=== PATIENT | female | born 1945 | race Caucasian/White ===

== ENCOUNTER 2017-03-28 11:13 | Emergency (ER) | payer MEDICARE ==
--- NOTE | 2017-03-28 12:37 | UC ---
Throat Pain/Nasal Aleksandr HPI - HPI Summary HPI Summary: Patient has had increased sinus pain and sore throat, deep cough that is productive - History of Current Complaint Chief Complaint: UCRespiratory Stated Complaint: SORE THROAT EAR PAIN Time Seen by Provider: 03/28/17 12:26 Hx Obtained From: Patient ?: No Onset/Duration: Sudden Onset, Lasting Days - 5-7 Severity: Moderate Cough: Productive Associated Signs & Symptoms: Positive: Dysphagia, Hoarseness, Sinus Discomfort, Nasal Discharge - Epiglottits Risk Factors Epiglottis Risk Factors: Negative - Allergies/Home Medications Allergies/Adverse Reactions: Allergies Allergy/AdvReac Type Severity Reaction Status Date / Time No Known Allergies Allergy Verified 01/28/15 16:36 PMH/Surg Hx/FS Hx/Imm Hx Previously Healthy: Yes - Surgical History Surgical History: Yes Surgery Procedure, Year, and Place: R hip replacement,t/a. Back fusion - Family History Known Family History: Negative: Cardiac Disease, Hypertension - Social History Alcohol Use: None Substance Use Type: None Smoking Status (MU): Never Smoked Tobacco Review of Systems Constitutional: Fatigue Skin: Negative Eyes: Negative ENT: Sore Throat, Ear Ache, Nasal Discharge, Sinus Congestion Respiratory: Cough Cardiovascular: Negative Gastrointestinal: Negative Genitourinary: Negative Motor: Negative Neurovascular: Negative Musculoskeletal: Negative Neurological: Headache Psychological: Negative All Other Systems Reviewed And Are Negative: Yes Physical Exam Triage Information Reviewed: Yes Appearance: Well-Appearing, Well-Nourished, Ill-Appearing Vital Signs: Initial Vital Signs Temp 97.6 F 03/28/17 11:20 Pulse 79 03/28/17 11:20 Resp 18 03/28/17 11:20 Pulse Ox 100 03/28/17 11:20 Vital Signs Reviewed: Yes Eye Exam: Normal ENT: Positive: Pharyngeal erythema, Nasal congestion, Nasal drainage, TMs normal , TM red, Tonsillar swelling Dental Exam: Normal Neck exam: Normal Neck: Positive: Supple, Nontender, No Lymphadenopathy Respiratory: Positive: Chest non-tender, No respiratory distress, No accessory muscle use, Rhonchi, Wheezing Cardiovascular Exam: Normal Cardiovascular: Positive: RRR, No Murmur, Pulses Normal Abdominal Exam: Normal Abdomen Description: Positive: Nontender, No Organomegaly, Soft Bowel Sounds: Positive: Present Musculoskeletal Exam: Normal Musculoskeletal: Positive: Strength Intact, ROM Intact, No Edema Neurological Exam: Normal Neurological: Positive: Alert, Muscle Tone Normal Psychological Exam: Normal Skin Exam: Normal Throat Pain/Nasal Course/Dx - Course Course Of Treatment: hx obtained, exam performed, meds reviewed, treated for sinusitis and bronchospasm - Differential Dx/Diagnosis Differential Diagnosis/HQI/PQRI: Otitis Media, Pharyngitis, Sinusitis Provider Diagnoses: sinusitis. bronchospasm Discharge - Discharge Plan Condition: Stable Disposition: HOME Patient Education Materials: Sinusitis (ED) Additional Instructions: 1. take the medication as prescribed. 2. increase your fluid intake and get plenty of rest. 3. Follow up as needed. 4. REMEMBER TO WEAR SUNSCREEN AND TAKE WITH FOOD
== END 2017-03-28 12:40 | disposition home or self-care (01) ==
LOC: UCEAST 11:13
DX: J32.9 Chronic sinusitis, unspecified (principal); J98.01 Acute bronchospasm
CPT/HCPCS: 99212; G0463

== ENCOUNTER 2017-03-31 13:27 | Emergency (ER) | payer MEDICARE ==
--- NOTE | 2017-03-31 13:41 | UC ---
Respiratory Complaint HPI - HPI Summary HPI Summary: 72 YEAR OLD PATIENT PRESENTS WITH SEVERE CHEST CONGESTION AND COUGH. - History of Current Complaint Chief Complaint: UCRespiratory Stated Complaint: RESP COMPLAINT Time Seen by Provider: 03/31/17 13:41 - Allergies/Home Medications Allergies/Adverse Reactions: Allergies Allergy/AdvReac Type Severity Reaction Status Date / Time No Known Allergies Allergy Verified 01/28/15 16:36 PMH/Surg Hx/FS Hx/Imm Hx - Surgical History Surgical History: Yes Surgery Procedure, Year, and Place: R hip replacement,t/a. Back fusion - Family History Known Family History: Negative: Cardiac Disease, Hypertension - Social History Alcohol Use: None Substance Use Type: None Smoking Status (MU): Never Smoked Tobacco Review of Systems Constitutional: Negative Skin: Negative Eyes: Negative ENT: Negative Respiratory: Cough Cardiovascular: Negative Gastrointestinal: Negative Genitourinary: Negative Motor: Negative Neurovascular: Negative Musculoskeletal: Negative Neurological: Negative Psychological: Negative All Other Systems Reviewed And Are Negative: Yes Physical Exam Triage Information Reviewed: Yes Vital Signs: Initial Vital Signs Temp 36.7 C 03/31/17 13:36 Pulse 77 03/31/17 13:36 Resp 20 03/31/17 13:36 Pulse Ox 97 03/31/17 13:36 Eye Exam: Normal ENT Exam: Normal Dental Exam: Normal Neck exam: Normal Respiratory: Positive: Rhonchi, Wheezing Cardiovascular Exam: Normal Abdominal Exam: Normal Musculoskeletal Exam: Normal Neurological Exam: Normal Psychological Exam: Normal Skin Exam: Normal UC Diagnostic Evaluation - Laboratory O2 Sat by Pulse Oximetry: 97 Respiratory Course/Dx - Differential Dx/Diagnosis Provider Diagnoses: BRONCHITIS Discharge - Discharge Plan Condition: Stable Disposition: HOME Prescriptions: Albuterol HFA INHALER* [Ventolin HFA Inhaler*] 1 puff INH Q4H PRN #1 mdi PRN Reason: Wheezing Levofloxacin TAB* [Levaquin TAB*] 750 mg PO DAILY #7 tab LoraTADine TAB(NF) [Claritin 10 MG TAB(NF)] 10 mg PO DAILY #30 tab guaiFENesin/CODIEN 100MG-10MG* [Robitussin AC 100Mg-10Mg*] 5 ml PO Q4H PRN #120 udc MDD 20 ML PRN Reason: Cough Patient Education Materials: Acute Bronchitis (ED) Referrals: No Primary Care Phys,NOPCP [Medical Doctor] -
== END 2017-03-31 13:55 | disposition home or self-care (01) ==
LOC: UCEAST 13:27
DX: J40 Bronchitis, not specified as acute or chronic (principal); Z96.641 Presence of right artificial hip joint
CPT/HCPCS: 99212; G0463

== ENCOUNTER 2017-04-04 10:02 | Emergency (ER) | payer MEDICARE ==
[2017-04-04] MEDS ORDERED: guaiFENesin ER TAB 600 MG PO ONE (12:42)
[2017-04-04] MEDS ORDERED: NS 0.9% 1000 ML* 1,000 ML IV ONE (12:42)
[2017-04-04 13:50] LABS: Hematocrit 45 % (35-47); Hemoglobin 14.6 g/dl (12.0-16.0); Mean Corpuscular HGB Conc 33 g/dl (31-36); Mean Corpuscular Hemoglobin 31 pg (27-31); Mean Corpuscular Volume 93 fL (80-97); Mean Platelet Volume 8 um3 (7.4-10.4); Red Blood Count 4.76 10^6/ul (4.0-5.4); Red Cell Distribution Width 14 % (10.5-15); White Blood Count 11.7 10^3/ul (3.5-10.8)
--- NOTE | 2017-04-04 13:57 | RAD ---
Indication: Chest tightness. 2 views of the chest including dual energy PA views demonstrates no mediastinal shift. Heart is of normal size and configuration. Old rib fractures in the right third fourth fifth ribs are noted. Lungs are clear. No pneumothorax is noted. IMPRESSION: No active cardiopulmonary disease is noted.
[2017-04-04 14:04] LABS: Albumin 4.2 g/dL (3.2-5.2); BUN/Creatinine Ratio 31.3 (8-20); C Reactive Protein 5.89 mg/L (< 5.00); Calcium 10.1 mg/dL (8.6-10.3); EGFR African American 111.6 (>60); EGFR Non-African American 86.8 (>60); Globulin 3.6 g/dL (2-4); Potassium 3.5 mmol/L (3.5-5.0); Total Bilirubin 0.4 mg/dL (0.2-1.0); Total Protein 7.8 g/dL (6.4-8.9)
[2017-04-04] MEDS ORDERED: Amoxicillin/Clavulanate TAB* 875 MG PO ONE (14:10)
[2017-04-04 14:15] LABS: Urine Bilirubin Negative (Negative); Urine Glucose Negative (Negative); Urine Nitrite Negative (Negative)
--- NOTE | 2017-04-04 15:02 | ED ---
Kaleb Armstrong Thomas, scribed for Mauricio Oscar MD on 04/04/17 at 1236 . Respiratory - HPI Summary HPI Summary: The pt is a 72 y/o F presenting to the ED c/o sore throat and cough that began 1 week ago. The cough is dry and worsened with movement. The pt additionally c/ o sore throat, ear pain, postnasal drip, nausea, "head feeling funny". The pt denies vomiting and SOB. She was a pt at a walk-in clinic twice this week. The first visit, she was diagnosed with a sinus infection and the second visit she was diagnosed with acute bronchitis. She was prescribed Levaquin, which she took for two days. Her Sx of nausea and "head felt funny" seemed to emerge with the onset of taking these medications. The pt is leaving for [place] in 4 days, she hopes. There is no PMHx of asthma or COPD. PMHx: DM, HTN. - History of Current Complaint Chief Complaint: EDUpperRespComplaint Stated Complaint: EAR/THROAT PAIN/COUGH Time Seen by Provider: 04/04/17 12:02 Hx Obtained From: Patient Onset/Duration: Lasting Weeks - 1 week, Still Present Pain Intensity: 0 Character: Cough (Nonproductive) Associated Signs and Symptoms: Sinus Infection - diagnosed during her first visit to a walk-in clinic - Allergy/Home Medications Allergies/Adverse Reactions: Allergies Allergy/AdvReac Type Severity Reaction Status Date / Time No Known Allergies Allergy Verified 04/04/17 10:10 PMH/Surg Hx/FS Hx/Imm Hx Previously Healthy: No Endocrine/Hematology History: Reports: Hx Diabetes Cardiovascular History: Reports: Hx Hypertension Opthamlomology History: Denies: Hx Legally Blind - Surgical History Surgery Procedure, Year, and Place: R hip replacement,t/a. Back fusion Infectious Disease History: No Infectious Disease History: Denies: Hx Clostridium Difficile, Hx Hepatitis, Hx Human Immunodeficiency Virus (HIV), Hx of Known/Suspected MRSA, Hx Shingles, Hx Tuberculosis, Hx Known/ Suspected VRE, Hx Known/Suspected VRSA, History Other Infectious Disease, Traveled Outside the [place] in Last 30 Days - Family History Known Family History: Negative: Cardiac Disease, Hypertension - Social History Alcohol Use: None Substance Use Type: Reports: None Smoking Status (MU): Never Smoked Tobacco Review of Systems Constitutional: Negative Negative: Fever Eyes: Negative ENT: Other - POS: postnasal drip, "head feeling funny" Positive: Sore Throat - onset 1 week ago, Ear Ache - onset 1 week ago Cardiovascular: Negative Positive: Cough - dry, onset 1 week ago. Negative: Shortness Of Breath Positive: Nausea. Negative: Vomiting Genitourinary: Negative Musculoskeletal: Negative Skin: Negative Neurological: Negative Psychological: Normal All Other Systems Reviewed And Are Negative: Yes Physical Exam - Summary Physical Exam Summary: VITAL SIGNS: Reviewed. GENERAL: Patient is a well-developed and nourished female who is lying comfortable in the stretcher. Patient is not in any acute respiratory distress. HEAD AND FACE: Positive sinus tenderness. Positive ethmoid tenderness. No signs of trauma. No ecchymosis, hematomas or skull depressions. EYES: PERRLA, EOMI x 2, No injected conjunctiva, no nystagmus. EARS: Hearing grossly intact. Ear canals and tympanic membranes are within normal limits. MOUTH: Oropharynx within normal limits. NECK: Supple, trachea is midline, no adenopathy, no JVD, no carotid bruit, no c- spine tenderness, neck with full ROM. CHEST: Symmetric, no tenderness at palpation LUNGS: Lungs have coarse breath sounds, otherwise normal. No wheezing or crackles. CVS: Regular rate and rhythm, S1 and S2 present, no murmurs or gallops appreciated. ABDOMEN: Soft, non-tender. No signs of distention. No rebound no guarding, and no masses palpated. Bowel sounds are normal. EXTREMITIES: FROM in all major joints, no edema, no cyanosis or clubbing. NEURO: Alert and oriented x 3. No acute neurological deficits. Speech is normal and follows commands. SKIN: Dry and warm Triage Information Reviewed: Yes Vital Signs On Initial Exam: Initial Vitals Temp Pulse Resp BP Pulse Ox 97.6 F 79 20 144/93 96 04/04/17 10:11 04/04/17 10:11 04/04/17 10:11 04/04/17 10:11 04/04/17 10:11 Vital Signs Reviewed: Yes - Julia Coma Scale Coma Scale Total: 15 Diagnostics - Vital Signs Vital Signs Temp Pulse Resp BP Pulse Ox 04/04/17 10:17 97.6 F 74 20 144/93 96 04/04/17 10:11 97.6 F 79 20 144/93 96 - Laboratory Lab Results: Lab Results 04/04/17 04/04/17 04/04/17 Range/Units 13:35 13:35 13:35 WBC 11.7 H (3.5-10.8) 10^3/ul RBC 4.76 (4.0-5.4) 10^6/ul Hgb 14.6 (12.0-16.0) g/dl Hct 45 (35-47) % MCV 93 (80-97) fL MCH 31 (27-31) pg MCHC 33 (31-36) g/dl RDW 14 (10.5-15) % Plt Count 264 (150-450) 10^3/ul MPV 8 (7.4-10.4) um3 Neut % (Auto) 61.2 (38-83) % Lymph % (Auto) 30.2 (25-47) % [place] % (Auto) 6.0 (1-9) % Eos % (Auto) 1.9 (0-6) % Baso % (Auto) 0.7 (0-2) % Absolute Neuts (auto) 7.2 (1.5-7.7) 10^3/ul Absolute Lymphs (auto) 3.5 (1.0-4.8) 10^3/ul Absolute Monos (auto) 0.7 (0-0.8) 10^3/ul Absolute Eos (auto) 0.2 (0-0.6) 10^3/ul Absolute Basos (auto) 0.1 (0-0.2) 10^3/ul Absolute Nucleated RBC 0.01 10^3/ul Nucleated RBC % 0.1 Sodium 138 (133-145) mmol/L Potassium 3.5 (3.5-5.0) mmol/L Chloride 100 L (101-111) mmol/L Carbon Dioxide 26 (22-32) mmol/L Anion Gap 12 H (2-11) mmol/L BUN 21 (6-24) mg/dL Creatinine 0.67 (0.51-0.95) mg/dL Est GFR ( Amer) 111.6 (>60) Est GFR (Non-Af Amer) 86.8 (>60) BUN/Creatinine Ratio 31.3 H (8-20) Glucose 92 (70-100) mg/dL Lactic Acid 3.3 H* (0.5-2.0) mmol/L Calcium 10.1 (8.6-10.3) mg/dL Total Bilirubin 0.40 (0.2-1.0) mg/dL AST 17 (13-39) U/L ALT 23 (7-52) U/L Alkaline Phosphatase 58 (34-104) U/L Troponin I 0.00 (<0.04) ng/mL C-Reactive Protein 5.89 H (< 5.00) mg/L Total Protein 7.8 (6.4-8.9) g/dL Albumin 4.2 (3.2-5.2) g/dL Globulin 3.6 (2-4) g/dL Albumin/Globulin Ratio 1.2 (1-3) Urine Color Urine Appearance Urine pH (5-9) Ur Specific [place] (1.010-1.030) Urine Protein (Negative) Urine Ketones (Negative) Urine Blood (Negative) Urine Nitrate (Negative) Urine Bilirubin (Negative) Urine Urobilinogen (Negative) Ur Leukocyte Esterase (Negative) Urine Glucose (Negative) Urine Ascorbic Acid (Negative) 04/04/17 Range/Units 14:08 WBC (3.5-10.8) 10^3/ul RBC (4.0-5.4) 10^6/ul Hgb (12.0-16.0) g/dl Hct (35-47) % MCV (80-97) fL MCH (27-31) pg MCHC (31-36) g/dl RDW (10.5-15) % Plt Count (150-450) 10^3/ul MPV (7.4-10.4) um3 Neut % (Auto) (38-83) % Lymph % (Auto) (25-47) % [place] % (Auto) (1-9) % Eos % (Auto) (0-6) % Baso % (Auto) (0-2) % Absolute Neuts (auto) (1.5-7.7) 10^3/ul Absolute Lymphs (auto) (1.0-4.8) 10^3/ul Absolute Monos (auto) (0-0.8) 10^3/ul Absolute Eos (auto) (0-0.6) 10^3/ul Absolute Basos (auto) (0-0.2) 10^3/ul Absolute Nucleated RBC 10^3/ul Nucleated RBC % Sodium (133-145) mmol/L Potassium (3.5-5.0) mmol/L Chloride (101-111) mmol/L Carbon Dioxide (22-32) mmol/L Anion Gap (2-11) mmol/L BUN (6-24) mg/dL Creatinine (0.51-0.95) mg/dL Est GFR ( Amer) (>60) Est GFR (Non-Af Amer) (>60) BUN/Creatinine Ratio (8-20) Glucose (70-100) mg/dL Lactic Acid (0.5-2.0) mmol/L Calcium (8.6-10.3) mg/dL Total Bilirubin (0.2-1.0) mg/dL AST (13-39) U/L ALT (7-52) U/L Alkaline Phosphatase (34-104) U/L Troponin I (<0.04) ng/mL C-Reactive Protein (< 5.00) mg/L Total Protein (6.4-8.9) g/dL Albumin (3.2-5.2) g/dL Globulin (2-4) g/dL Albumin/Globulin Ratio (1-3) Urine Color Yellow Urine Appearance Clear Urine pH 5.0 (5-9) Ur Specific [place] 1.015 (1.010-1.030) Urine Protein Negative (Negative) Urine Ketones Negative (Negative) Urine Blood Negative (Negative) Urine Nitrate Negative (Negative) Urine Bilirubin Negative (Negative) Urine Urobilinogen Negative (Negative) Ur Leukocyte Esterase Negative (Negative) Urine Glucose Negative (Negative) Urine Ascorbic Acid * H (Negative) Result Diagrams: 04/04/17 13:35 04/04/17 13:35 Lab Statement: Any lab studies that have been ordered have been reviewed, and results considered in the medical decision making process. - Radiology CXR Xray Interpretation: No Acute Changes - no active cardiopulmonary disease is noted Radiology Interpretation Completed By: Radiologist - EKG 13:14 Cardiac Rate: NL - 72 BPM EKG Interpretation: Sinus rhythm. No ST elevations. T-wave inversions at V2 Re-Evaluation - Re-Evaluation Second Eval Re-Evaluation Time: 01:13 Change: Improved Comment: Doing better. Disposition - Course Assessment/Plan: The pt is a 72 y/o F presenting to the ED c/o sore throat and cough that began 1 week ago. The cough is dry and worsened with movement. The pt additionally c/o sore throat, ear pain, post nasal drip, nausea, "head feeling funny". The pt denies vomiting and SOB. She was a pt at a walk-in clinic twice this week. The first visit, she was diagnosed with a sinus infection and the second visit she was diagnosed with acute bronchitis. She was prescribed Levaquin, which she took for two days. Her Sx of nausea and "head felt funny" seemed to emerge with the onset of taking these medications. The pt is leaving for [place] in 4 days, she hopes. There is no PMHx of asthma or COPD. I discussed all the findings and test results with the patient. Patient was instructed to return to the emergency room immediately if any of the symptoms return or worsens . Plan of care was discussed with the patient and understands and agrees. All questions were answered at patient satisfaction. There were no further complaints or concerns. Lung exam before discharge: CTA B/L. Good air exchange. No wheezing or crackles heard. CVS: S1 and S2 present. No murmurs appreciated. Patient is alert and oriented x 3. Patient is hemodynamically stable. 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 2-3 days - Differential Dx - Cardiopulmonary Differential Diagnoses - Cardiopulmonary: Bronchitis, Influenza, Laryngitis, Lower Resp Infection - Diagnoses Provider Diagnoses: Acute sinusitis Discharge - Discharge Plan Condition: Stable Disposition: HOME Prescriptions: Amoxicillin/Clavulanate TAB* [Augmentin TAB 875*] 875 mg PO BID #10 tab Ondansetron TAB* [Zofran 4 MG Tab*] 4 mg PO Q6H PRN #12 tab PRN Reason: Nausea Phenyleph-Promethazine W/ Cod [Promethazine Vc/Codeine] 1 syp PO Q8H PRN #120 ml MDD 30 ml PRN Reason: Cough Patient Education Materials: Sinusitis (ED) Referrals: [facility] [Outside] - 2 Days The documentation as recorded by the Kaleb strauss Thomas accurately reflects the service I personally performed and the decisions made by me, Mauricio Oscar MD.
[2017-04-04 15:08] VITALS: BP 127/74
== END 2017-04-04 15:09 | disposition home or self-care (01) ==
LOC: ED 10:02
DX: J02.9 Acute pharyngitis, unspecified (principal); J32.9 Chronic sinusitis, unspecified; R05 Cough; R11.0 Nausea
CPT/HCPCS: 36415; 71020; 80053; 81003; 83605; 84484; 85025; 86140; 87040; 93005; 99283; A9270-GY

== ENCOUNTER 2017-05-10 18:35 | Inpatient (IN) | payer MEDICARE ==
[2017-05-10] MEDS ORDERED: Aspirin Low Dose CHEW TAB* 81 MG PO ONE (22:50)
[2017-05-10 23:21] LABS: Hematocrit 43 % (35-47); Hemoglobin 14.5 g/dl (12.0-16.0); Mean Corpuscular HGB Conc 34 g/dl (31-36); Mean Corpuscular Hemoglobin 31 pg (27-31); Mean Corpuscular Volume 93 fL (80-97); Mean Platelet Volume 7 um3 (7.4-10.4); Red Blood Count 4.67 10^6/ul (4.0-5.4); Red Cell Distribution Width 14 % (10.5-15); White Blood Count 10.5 10^3/ul (3.5-10.8)
[2017-05-10 23:42] LABS: Albumin 4.2 g/dL (3.2-5.2); BUN/Creatinine Ratio 32.9 (8-20); Calcium 10.1 mg/dL (8.6-10.3); EGFR African American 106.1 (>60); EGFR Non-African American 82.5 (>60); Globulin 3.5 g/dL (2-4); Potassium 3.7 mmol/L (3.5-5.0); Total Bilirubin 0.4 mg/dL (0.2-1.0); Total Protein 7.7 g/dL (6.4-8.9)
[2017-05-11] MEDS ORDERED: Acetaminophen TAB* 325 MG PO PRN (00:16)
[2017-05-11] MEDS ORDERED: CMCS: Melatonin (NF) 3 MG TAB PO PRN (00:16)
[2017-05-11] MEDS ORDERED: Ondansetron INJ* 2 MG/ML VIAL IV PRN (00:16)
--- NOTE | 2017-05-11 00:31 | HP ---
H&P (Free Text) History and Physical: PCP: Dr Robins in [place], [place] Date/Time of Evaluation: 05/11/2017 0020 CC: chest discomfort HPI: Mrs Reyes is a 72YO female HX HTN & DM2 presents reporting an episode yesterday lasting an hour while driving of back pain radiating to the chest associated with nausea, but no SOB, palpitations, light-headedness, or other issues. The pain is described as sharp with band-like constriction. Today the pain returned less severe and less lasting, but causing her increased concern and prompting her to present for evaluation. She denies exacerbating or alleviating factors. She denies HX of cardiac cath or stress test. PMedHx HTN DM2 asthma psoriasis Ambulatory Orders Nursing to reconcile. Ascorbic Acid TAB* [Vitamin C TAB*] 01/28/15 Benazepril & Hydrochlorothiazi [Benazepril HCl/Hydrochlor 10-12.5 mg-] Biotin 01/28/15 Calcium With Vitamin D 600 mg 01/28/15 Clobetasol Shampoo 01/28/15 Eye [place] Advantage/Vitam 01/28/15 Montelukast Sodium TAB* [Singulair 10 MG TAB*] 01/28/15 Osteo Bi Flex With Msm 01/28/15 Potassium 01/28/15 glipiZIDE TAB* [Glucotrol TAB*] 10 mg 01/28/15 metFORMIN* [Glucophage 1000 MG TAB *] 01/28/15 predniSONE TAB* [Deltasone TAB*] 20 mg PO DAILY #7 tab 03/28/17 Albuterol HFA INHALER* [Ventolin HFA Inhaler*] 1 puff INH Q4H PRN #1 mdi LoraTADine TAB(NF) [Claritin 10 MG TAB(NF)] 10 mg PO DAILY #30 tab 03/31/17 guaiFENesin/CODIEN 100MG-10MG* [Robitussin AC 100Mg-10Mg*] 5 ml PO Q4H PRN #120 udc MDD 20 ML 03/31/17 Amoxicillin/Clavulanate TAB* [Augmentin TAB 875*] 875 mg PO BID #10 tab Ondansetron TAB* [Zofran 4 MG Tab*] 4 mg PO Q6H PRN #12 tab 04/04/17 Phenyleph-Promethazine W/ Cod [Promethazine Vc/Codeine] 1 syp PO Q8H PRN #120 ml MDD 30 ml 04/04/17 Allergies No Known Allergies Allergy (Verified 04/04/17 10:10) PSurgHx tonsillectomy L-spine surgery x3 R RONI SocHx: former light smoker, no alcohol, or recreational drugs; lives with her ; full code status FamHx: Mother passed in her 80s of CVA. Father passed in his 70s of lung CA. ROS: as above, otherwise reviewed and all were negative Constitutional: NAD, normally developed, well-nourished elderly female vitals: Vital Signs Temp 36.8 C 05/10/17 23:11 Pulse 76 05/10/17 23:11 Resp 18 05/10/17 23:11 BP 132/74 05/10/17 23:11 Pulse Ox 97 05/10/17 23:11 Intake & Output 05/10/17 05/10/17 05/11/17 11:59 23:59 11:59 Weight 65.771 kg HEENM: atraumatic; sclera/conjunctiva: non-icteric/clear; hearing: clinically intact; oropharynx: clear, mucosa moist Neck: soft tissue: non-tender; thyroid: normal Pulmonary: clear to auscultation bilaterally, good aeration, no accessory muscle use CV: RR/RR, normal S1S2, no carotid bruit, no jugular venous distention, 2+ B DP/ PT, no edema Abdominal: soft, non-distended, non-tender, no rebound/guarding/rigidity, normoactive bowel sounds, no hepatosplenomegaly or masses, no costovertebral angle tenderness Musculoskeletal: general: grossly intact; gait: stable Integumental: normal appearance and texture Psychiatric orientation: AA&O to PPS affect: calm mood: pleasant eye contact: good content: reliable responses: timely insight: good to fair Testing: Laboratory Results - last 24 hr 05/10/17 05/10/17 05/10/17 23:03 23:03 23:03 WBC 10.5 RBC 4.67 Hgb 14.5 Hct 43 MCV 93 MCH 31 MCHC 34 RDW 14 Plt Count 271 MPV 7 L Neut % (Auto) 56.2 Lymph % (Auto) 33.6 [place] % (Auto) 8.2 Eos % (Auto) 1.6 Baso % (Auto) 0.4 Absolute Neuts (auto) 5.9 Absolute Lymphs (auto) 3.5 Absolute Monos (auto) 0.9 H Absolute Eos (auto) 0.2 Absolute Basos (auto) 0 Absolute Nucleated RBC 0 Nucleated RBC % 0 Sodium 136 Potassium 3.7 Chloride 100 L Carbon Dioxide 26 Anion Gap 10 BUN 23 Creatinine 0.70 Est GFR ( Amer) 106.1 Est GFR (Non-Af Amer) 82.5 BUN/Creatinine Ratio 32.9 H Glucose 132 H Lactic Acid 2.0 Calcium 10.1 Total Bilirubin 0.40 AST 19 ALT 20 Alkaline Phosphatase 62 Troponin I 0.00 B-Natriuretic Peptide Total Protein 7.7 Albumin 4.2 Globulin 3.5 Albumin/Globulin Ratio 1.2 05/10/17 23:03 WBC RBC Hgb Hct MCV MCH MCHC RDW Plt Count MPV Neut % (Auto) Lymph % (Auto) [place] % (Auto) Eos % (Auto) Baso % (Auto) Absolute Neuts (auto) Absolute Lymphs (auto) Absolute Monos (auto) Absolute Eos (auto) Absolute Basos (auto) Absolute Nucleated RBC Nucleated RBC % Sodium Potassium Chloride Carbon Dioxide Anion Gap BUN Creatinine Est GFR ( Amer) Est GFR (Non-Af Amer) BUN/Creatinine Ratio Glucose Lactic Acid Calcium Total Bilirubin AST ALT Alkaline Phosphatase Troponin I B-Natriuretic Peptide 434 H Total Protein Albumin Globulin Albumin/Globulin Ratio ECG, personally reviewed: NSR rate 65, inverted T-waves V1/2; unchanged from 2016 CXR, personally reviewed: old R rib FXs, no acute process Impression: 72F presenting with chest pain for r/o ACS DIAGNOSIS & PLAN Primary chest pain r/o ACS : telemetry : aspirin : trend troponin : stress test in AM : consider cardiology consult pending above results : supplemental oxygen : supportive care Secondary HTN : review meds once reconciled DM2 : NPO for stress testing : correctional insulin : check A1c asthma : review meds once reconciled Admission Rational: CDU observation for r/o ACS DVTp: heparin SQ Code Status: full HCP:
--- NOTE | 2017-05-11 02:11 | ED ---
I, Oh,Soregina, scribed for Lázaro Carrillo MD on 05/10/17 at 2244 . HPI Chest Pain - HPI Summary HPI Summary: This 72 y/o female presents to ED for intermittent chest pain since last night. Pt had one episode last night that lasted about an hour and spontaneously resolved. Pt was driving at time of onset. Today she had another at 1700 PM and lasted about 45 minutes. Pt attempted to alleviate pain by resting and drinking coke. Pt denies any prior cardiac disease. No updated echocardiogram or stress test. PMHx includes DM and HTN. PSHx includes hip replacement and back surgery. FHx is negative for cardiac disease. Pt does not have any primary care established in [facility]. - History of Current Complaint Chief Complaint: EDChestPainROMI Time Seen by Provider: 05/10/17 22:33 Hx Obtained From: Patient, Medical Records Onset/Duration: Started Days Ago, Atraumatic, Still Present Timing: Intermittent, Lasting Minutes, Lasting Hours Pain Intensity: 0 Pain Scale Used: 0-10 Numeric Chest Pain Location: Diffuse Chest Pain Radiates: Yes Chest Pain Radiates To:: Back - upper back - Allergy/Home Medications Allergies/Adverse Reactions: Allergies Allergy/AdvReac Type Severity Reaction Status Date / Time No Known Allergies Allergy Verified 04/04/17 10:10 PMH/Surg Hx/FS Hx/Imm Hx Endocrine/Hematology History: Reports: Hx Diabetes Cardiovascular History: Reports: Hx Hypertension Sensory History: Denies: Hx Legally Blind Opthamlomology History: Denies: Hx Legally Blind - Surgical History Surgery Procedure, Year, and Place: R hip replacement,t/a. Back fusion Infectious Disease History: Denies: Hx Clostridium Difficile, Hx Hepatitis, Hx Human Immunodeficiency Virus (HIV), Hx of Known/Suspected MRSA, Hx Shingles, Hx Tuberculosis, Hx Known/ Suspected VRE, Hx Known/Suspected VRSA, History Other Infectious Disease, Traveled Outside the [place] in Last 30 Days - Family History Known Family History: Negative: Cardiac Disease, Hypertension - Social History Alcohol Use: None Substance Use Type: Reports: None Smoking Status (MU): Never Smoked Tobacco Review of Systems Negative: Fever, Chills, Skin Diaphoresis Positive: Chest Pain - radiating to upper back pain Negative: Shortness Of Breath All Other Systems Reviewed And Are Negative: Yes Physical Exam - Summary Physical Exam Summary: The patient is well-nourished in no acute distress and in no acute pain. The skin is warm and dry and skin color reflects adequate perfusion. HEENT: The head is normocephalic and atraumatic. The pupils are equal and reactive. The conjunctivae are clear and without drainage. Nares are patent and without drainage. Mouth reveals moist mucous membranes and the throat is without erythema and exudate. The external ears are intact. The ear canals are patent and without drainage. The tympanic membranes are intact. Neck is supple with full range of motion and non-tender. There are no carotid bruits. There is no neck vein distension. Respiratory: Chest is non-tender. Lungs are clear to auscultation and breath sounds are symmetrical and equal. Cardiovascular: Hear is regular rate and rhythm. There is no murmur or rub auscultated. There is no peripheral edema and pulses are symmetrical and equal. Abdomen: The abdomen is soft and non-tender. There are normal bowel sounds heard in all four quadrants and there is no organomegaly palpated. Musculoskeletal: There is no back pain noted. Extremities are non-tender with full range of motion. There is good capillary refill. There is no peripheral edema or calf tenderness elicited. Neurological: Patient is alert and oriented to person, place and time. The patient has symmetrical motor strength in all four extremities. Cranial nerves are grossly intact. Deep tendon reflexes are symmetrical and equal in all four extremities. Psychiatric: The patient has an appropriate affect and does not exhibit any anxiety or depression. Triage Information Reviewed: Yes Vital Signs On Initial Exam: Initial Vitals Temp Pulse Resp BP Pulse Ox 97.8 F 71 20 147/84 100 05/10/17 18:36 05/10/17 18:36 05/10/17 18:36 05/10/17 18:36 05/10/17 18:36 Vital Signs Reviewed: Yes Diagnostics - Vital Signs Vital Signs Temp Pulse Resp BP Pulse Ox 05/10/17 20:56 98.2 F 67 14 133/65 97 05/10/17 18:36 97.8 F 71 20 147/84 100 - Laboratory Lab Results: Lab Results 05/10/17 05/10/17 05/10/17 Range/Units 23:03 23:03 23:03 WBC 10.5 (3.5-10.8) 10^3/ul RBC 4.67 (4.0-5.4) 10^6/ul Hgb 14.5 (12.0-16.0) g/dl Hct 43 (35-47) % MCV 93 (80-97) fL MCH 31 (27-31) pg MCHC 34 (31-36) g/dl RDW 14 (10.5-15) % Plt Count 271 (150-450) 10^3/ul MPV 7 L (7.4-10.4) um3 Neut % (Auto) 56.2 (38-83) % Lymph % (Auto) 33.6 (25-47) % [place] % (Auto) 8.2 (1-9) % Eos % (Auto) 1.6 (0-6) % Baso % (Auto) 0.4 (0-2) % Absolute Neuts (auto) 5.9 (1.5-7.7) 10^3/ul Absolute Lymphs (auto) 3.5 (1.0-4.8) 10^3/ul Absolute Monos (auto) 0.9 H (0-0.8) 10^3/ul Absolute Eos (auto) 0.2 (0-0.6) 10^3/ul Absolute Basos (auto) 0 (0-0.2) 10^3/ul Absolute Nucleated RBC 0 10^3/ul Nucleated RBC % 0 Sodium 136 (133-145) mmol/L Potassium 3.7 (3.5-5.0) mmol/L Chloride 100 L (101-111) mmol/L Carbon Dioxide 26 (22-32) mmol/L Anion Gap 10 (2-11) mmol/L BUN 23 (6-24) mg/dL Creatinine 0.70 (0.51-0.95) mg/dL Est GFR ( Amer) 106.1 (>60) Est GFR (Non-Af Amer) 82.5 (>60) BUN/Creatinine Ratio 32.9 H (8-20) Glucose 132 H (70-100) mg/dL Lactic Acid 2.0 (0.5-2.0) mmol/L Calcium 10.1 (8.6-10.3) mg/dL Total Bilirubin 0.40 (0.2-1.0) mg/dL AST 19 (13-39) U/L ALT 20 (7-52) U/L Alkaline Phosphatase 62 (34-104) U/L Troponin I 0.00 (<0.04) ng/mL B-Natriuretic Peptide ( - 100) pg/mL Total Protein 7.7 (6.4-8.9) g/dL Albumin 4.2 (3.2-5.2) g/dL Globulin 3.5 (2-4) g/dL Albumin/Globulin Ratio 1.2 (1-3) 05/10/17 Range/Units 23:03 WBC (3.5-10.8) 10^3/ul RBC (4.0-5.4) 10^6/ul Hgb (12.0-16.0) g/dl Hct (35-47) % MCV (80-97) fL MCH (27-31) pg MCHC (31-36) g/dl RDW (10.5-15) % Plt Count (150-450) 10^3/ul MPV (7.4-10.4) um3 Neut % (Auto) (38-83) % Lymph % (Auto) (25-47) % [place] % (Auto) (1-9) % Eos % (Auto) (0-6) % Baso % (Auto) (0-2) % Absolute Neuts (auto) (1.5-7.7) 10^3/ul Absolute Lymphs (auto) (1.0-4.8) 10^3/ul Absolute Monos (auto) (0-0.8) 10^3/ul Absolute Eos (auto) (0-0.6) 10^3/ul Absolute Basos (auto) (0-0.2) 10^3/ul Absolute Nucleated RBC 10^3/ul Nucleated RBC % Sodium (133-145) mmol/L Potassium (3.5-5.0) mmol/L Chloride (101-111) mmol/L Carbon Dioxide (22-32) mmol/L Anion Gap (2-11) mmol/L BUN (6-24) mg/dL Creatinine (0.51-0.95) mg/dL Est GFR ( Amer) (>60) Est GFR (Non-Af Amer) (>60) BUN/Creatinine Ratio (8-20) Glucose (70-100) mg/dL Lactic Acid (0.5-2.0) mmol/L Calcium (8.6-10.3) mg/dL Total Bilirubin (0.2-1.0) mg/dL AST (13-39) U/L ALT (7-52) U/L Alkaline Phosphatase (34-104) U/L Troponin I (<0.04) ng/mL B-Natriuretic Peptide 434 H ( - 100) pg/mL Total Protein (6.4-8.9) g/dL Albumin (3.2-5.2) g/dL Globulin (2-4) g/dL Albumin/Globulin Ratio (1-3) Result Diagrams: 05/10/17 23:03 05/10/17 23:03 Lab Statement: Any lab studies that have been ordered have been reviewed, and results considered in the medical decision making process. - Radiology CXR Radiology Interpretation Completed By: ED Physician - EKG 7847 Cardiac Rate: NL - at 65 bpm EKG Rhythm: Sinus Rhythm EKG Interpretation: T-wave inversion at V1, and V2. Nonspecific changes at V3, V4, F5, and V6. Re-Evaluation - Re-Evaluation First Eval Re-Evaluation Time: 00:07 Comment: MD in room to update pt on blood work, EKG, and CXR. Plan of care involving admission and further cardiac workup is disucssed, and pt is agreeable at this moment. Chest Pain Course/Dx - Course Assessment/Plan: This 72 y/o female presents to ED for intermittent chest pressure since last night. Pt had initial episode last night that lasted about 1 hour while she was driving. Another episode occurred tonight that lasted about 45 minutes. EKG was noted with T-wave inversion and nonspecific changes. Blood work is noted with negative trop. Given the lack of recent stress test or echocardiogram, further cardiac workup is desirable. Plan of care is discussed with Dr. Anguiano, oncall hospitalist, who is agreeable to admission. - Chest Pain Differential Diagnosis/HQI/PQRI: Acute MA, ACS, GI Disease, Lower Respiratory Infection - Diagnoses Provider Diagnoses: Chest pain - Provider Notifications Discussed Care Of Patient With: Marco Anguiano Time Discussed With Above Provider: 00:08 Instructed by Provider To: Admit As Inpatient Discharge - Discharge Plan Condition: Stable Disposition: ADMITTED TO [facility] documentation as recorded by the scribe, Oh,Soohyun accurately reflects the service I personally performed and the decisions made by me, Lázaro Carrillo MD.
[2017-05-11] MEDS: Omeprazole CAP* 20 MG PO SCH (06:12)
--- NOTE | 2017-05-11 08:04 | RAD ---
HISTORY: Chest pain COMPARISONS: April 04, 2017 VIEWS: 4: Frontal dual-energy and lateral views of the chest. FINDINGS: CARDIOMEDIASTINAL SILHOUETTE: The aorta is tortuous. The cardiomediastinal silhouette is otherwise unremarkable. MAAME: The maame are normal. PLEURA: The costophrenic angles are sharp. No pleural abnormalities are noted. LUNG PARENCHYMA: The lungs are clear. ABDOMEN: The upper abdomen is clear. There is no subphrenic gas. BONES AND SOFT TISSUES: There is remote posttraumatic deformity to the right hemithorax OTHER: None. IMPRESSION: NO ACTIVE CARDIOPULMONARY DISEASE.
[2017-05-11] MEDS: Docusate CAP* 100 MG PO SCH ×2 (08:39→20:10)
[2017-05-11] MEDS ORDERED: glipiZIDE TAB* 5 MG PO SCH (09:00)
[2017-05-11] MEDS ORDERED: metFORMIN* 1,000 MG TAB PO SCH (09:00)
[2017-05-11] MEDS ORDERED: Regadenoson* 0.4 MG/5 ML SYRINGE ONE (10:08)
--- NOTE | 2017-05-11 10:50 | PN ---
Subjective Date of Service: 05/11/17 Interval History: Ms. Reyes denies complaint. She specifically denies chest pain since arrival. She further denies SOB, nausea, or abdominal pain. Objective Active Medications: Acetaminophen (Tylenol Tab*) 650 mg PO Q6H PRN Aspirin (Aspirin Ec Low Dose*) 81 mg PO DAILY SHAVON Docusate Sodium (Colace Cap*) 200 mg PO BID SHAVON Glipizide (Glucotrol Tab*) 5 mg PO BID SHAVNO Heparin Sodium (Porcine) (Heparin Vial(*)) 5,000 units SUBCUT Q8HR SHAVON Melatonin (Melatonin (Nf)) 3 mg PO BEDTIME PRN; Protocol Metformin HCl (Glucophage*) 1,000 mg PO BID SHAVON Omeprazole (Prilosec Cap*) 20 mg PO DAILY@0600 SHAVON Ondansetron HCl (Zofran Inj*) 4 mg IV Q6H PRN Vital Signs 05/11/17 05/11/17 05/11/17 00:37 01:04 03:54 Temperature 97.6 F 97.3 F Pulse Rate 67 64 56 Respiratory 18 18 16 Rate Blood Pressure 137/75 114/93 117/57 (mmHg) O2 Sat by Pulse 98 100 99 Oximetry 05/11/17 08:10 Temperature 98 F Pulse Rate 65 Respiratory 16 Rate Blood Pressure 114/53 (mmHg) O2 Sat by Pulse Oximetry Oxygen Devices in Use Now: None Appearance: Female sitting up in NAD. Eyes: No Scleral Icterus Ears/Nose/Mouth/Throat: Mucous Membranes Moist Neck: Trachea Midline Respiratory: Symmetrical Chest Expansion and Respiratory Effort, Clear to Auscultation Cardiovascular: NL Sounds; No Murmurs; No JVD, No Edema Abdominal: NL Sounds; No Tenderness; No Distention Lymphatic: No Cervical Adenopathy Extremities: No Edema Skin: No Rash or Ulcers Neurological: Alert and Oriented x 3, NL Muscle Strength and Tone Nutrition: Taking PO's Result Diagrams: 05/10/17 23:03 05/10/17 23:03 Additional Lab and Data: Lab Results 05/10/17 05/10/17 05/10/17 Range/Units 23:03 23:03 23:03 WBC 10.5 (3.5-10.8) 10^3/ul RBC 4.67 (4.0-5.4) 10^6/ul Hgb 14.5 (12.0-16.0) g/dl Hct 43 (35-47) % MCV 93 (80-97) fL MCH 31 (27-31) pg MCHC 34 (31-36) g/dl RDW 14 (10.5-15) % Plt Count 271 (150-450) 10^3/ul MPV 7 L (7.4-10.4) um3 Neut % (Auto) 56.2 (38-83) % Lymph % (Auto) 33.6 (25-47) % [place] % (Auto) 8.2 (1-9) % Eos % (Auto) 1.6 (0-6) % Baso % (Auto) 0.4 (0-2) % Absolute Neuts (auto) 5.9 (1.5-7.7) 10^3/ul Absolute Lymphs (auto) 3.5 (1.0-4.8) 10^3/ul Absolute Monos (auto) 0.9 H (0-0.8) 10^3/ul Absolute Eos (auto) 0.2 (0-0.6) 10^3/ul Absolute Basos (auto) 0 (0-0.2) 10^3/ul Absolute Nucleated RBC 0 10^3/ul Nucleated RBC % 0 Sodium 136 (133-145) mmol/L Potassium 3.7 (3.5-5.0) mmol/L Chloride 100 L (101-111) mmol/L Carbon Dioxide 26 (22-32) mmol/L Anion Gap 10 (2-11) mmol/L BUN 23 (6-24) mg/dL Creatinine 0.70 (0.51-0.95) mg/dL Est GFR ( Amer) 106.1 (>60) Est GFR (Non-Af Amer) 82.5 (>60) BUN/Creatinine Ratio 32.9 H (8-20) Glucose 132 H (70-100) mg/dL Lactic Acid 2.0 (0.5-2.0) mmol/L Calcium 10.1 (8.6-10.3) mg/dL Total Bilirubin 0.40 (0.2-1.0) mg/dL AST 19 (13-39) U/L ALT 20 (7-52) U/L Alkaline Phosphatase 62 (34-104) U/L Troponin I 0.00 (<0.04) ng/mL B-Natriuretic Peptide ( - 100) pg/mL Total Protein 7.7 (6.4-8.9) g/dL Albumin 4.2 (3.2-5.2) g/dL Globulin 3.5 (2-4) g/dL Albumin/Globulin Ratio 1.2 (1-3) // Range/Units 23:03 WBC (3.5-10.8) 10^3/ul RBC (4.0-5.4) 10^6/ul Hgb (12.0-16.0) g/dl Hct (35-47) % MCV (80-97) fL MCH (27-31) pg MCHC (31-36) g/dl RDW (10.5-15) % Plt Count (150-450) 10^3/ul MPV (7.4-10.4) um3 Neut % (Auto) (38-83) % Lymph % (Auto) (25-47) % [place] % (Auto) (1-9) % Eos % (Auto) (0-6) % Baso % (Auto) (0-2) % Absolute Neuts (auto) (1.5-7.7) 10^3/ul Absolute Lymphs (auto) (1.0-4.8) 10^3/ul Absolute Monos (auto) (0-0.8) 10^3/ul Absolute Eos (auto) (0-0.6) 10^3/ul Absolute Basos (auto) (0-0.2) 10^3/ul Absolute Nucleated RBC 10^3/ul Nucleated RBC % Sodium (133-145) mmol/L Potassium (3.5-5.0) mmol/L Chloride (101-111) mmol/L Carbon Dioxide (22-32) mmol/L Anion Gap (2-11) mmol/L BUN (6-24) mg/dL Creatinine (0.51-0.95) mg/dL Est GFR ( Amer) (>60) Est GFR (Non-Af Amer) (>60) BUN/Creatinine Ratio (8-20) Glucose (70-100) mg/dL Lactic Acid (0.5-2.0) mmol/L Calcium (8.6-10.3) mg/dL Total Bilirubin (0.2-1.0) mg/dL AST (13-39) U/L ALT (7-52) U/L Alkaline Phosphatase (34-104) U/L Troponin I (<0.04) ng/mL B-Natriuretic Peptide 434 H ( - 100) pg/mL Total Protein (6.4-8.9) g/dL Albumin (3.2-5.2) g/dL Globulin (2-4) g/dL Albumin/Globulin Ratio (1-3) Assess/Plan/Problems-Billing Assessment: Ms. Reyes is a 72 yo female with a PMH of HTN and DM who was admitted on with chest pain. - Patient Problems (1) Chest pain Comment: - Trops negative and EKG without evidence of ischemia. - However, stress test read as high risk with large area of reversible ischemia. - Dr. Garcia consulted for likely cardiac cath today. - Continue aspirin. (2) Hypertension Comment: - SBP 110s. (3) Diabetes Comment: - Hold glipizide and metformin. - BGs qAC with lispro SSI coverage. (4) DVT prophylaxis Comment: - Heparin SQ. (5) Full code status Status and Disposition: OBV. Anticipate discharge to home when medically stable.
--- NOTE | 2017-05-11 12:17 | RAD ---
HISTORY: Chest pain with nausea, hypertension, diabetes COMPARISONS: None TECHNIQUE: A 1 day stress/rest myocardial perfusion study was performed, with pharmacologic stress. The stress portion was monitored by Dr. Garcia. Gated SPECT imaging was performed, with CT-based attenuation correction DOSE: Stress: Technetium 99m tetrofosmin, 25.94 millicuries, injected at 10:44 AM on May 11, 2017 Rest: Technetium 99m tetrofosmin, 10.5 millicuries, injected at 7:45 AM on May 11, 2017 Pharmacologic agent: Lexiscan FINDINGS: CARDIAC MONITORING: No significant changes with stress EF: 63 % TID: 0.97 MOTION: Normal motion, with normal wall thickening. PERFUSION: There is a large reversible defect of the inferior wall and septum OTHER: None IMPRESSION: LARGE REVERSIBLE DEFECT OF THE INFERIOR WALL AND SEPTUM ASSESSMENT: HIGH RISK. Based on imaging criteria from ACC/AHA 2002. Guideline Update for the Management of Patient's with Chronic Stable Angina, table 23. Noninvasive Risk Stratification.
[2017-05-11] MEDS ORDERED: Dextrose 50% Syringe 50 ML* 25 GM/50 ML SYRINGE IV PUSH PRN (14:33)
[2017-05-11] MEDS ORDERED: Diazepam TAB(*) 5 MG PO SCH (15:30)
[2017-05-11] MEDS ORDERED: diPHENhydraMINE PO* 25 MG PO SCH (15:30)
[2017-05-11] MEDS: Insulin LISPRO* 1 UNITS UNIT SUBCUT SCH (17:08)
[2017-05-11 18:46] LABS: BUN/Creatinine Ratio 27.3 (8-20); Calcium 9.3 mg/dL (8.6-10.3); EGFR Non-African American 73.9 (>60); Potassium 3.6 mmol/L (3.5-5.0)
[2017-05-11 18:48] LABS: Hematocrit 42 % (35-47); Hemoglobin 14.1 g/dl (12.0-16.0); Mean Corpuscular HGB Conc 33 g/dl (31-36); Mean Corpuscular Hemoglobin 31 pg (27-31); Mean Corpuscular Volume 93 fL (80-97); Mean Platelet Volume 7 um3 (7.4-10.4); Red Blood Count 4.55 10^6/ul (4.0-5.4); Red Cell Distribution Width 14 % (10.5-15); White Blood Count 11.8 10^3/ul (3.5-10.8)
--- NOTE | 2017-05-11 22:32 | CONS ---
CONSULTATION REPORT: DATE OF CONSULTATION: 05/11/17 INDICATION FOR CONSULTATION: Chest pain, abnormal stress test. HISTORY OF PRESENT ILLNESS: The patient is a 72-year-old female with a history of diabetes and hypertension, who was admitted to the hospital with chest pain. The patient states that Wednesday, the patient was driving home from her work and started having chest pain. She said it actually started in her back and was started as a back pain that radiated forward into her chest. She has had a crushing sensation in her chest that went to both arms. She got diaphoretic with this symptom as well. She went into the house and sat down. Her said she looked quite uncomfortable and was about to call 911. The patient states that her symptoms may have started getting better. In reality, the patient states that her symptoms lasted for about 45 minutes and then slowly went away. After about 45 minutes, her diaphoresis went away and her symptoms went away. The patient was asymptomatic until last evening, Wednesday night, when she had similar symptoms. The patient states that she came home from being out and about and started having itching sensation across her body. She took some hand cream and put it on her body, she also took a Benadryl. Approximately 20 minutes later, she had the same symptoms of crushing chest pain, pressure in her chest, and diaphoresis. This lasted for approximately 15 minutes and then resolved on its own. At that time, the decided to bring her to the hospital. On arrival to the hospital, her EKG showed normal sinus rhythm with nonspecific T-wave abnormalities. There was no evidence of an acute cardiac event. The patient's troponin levels were normal. The patient underwent chemical nuclear stress test today. The patient was scheduled for an exercise stress test; however, when the patient stood up to start the treadmill, she went into a left bundle-branch block and it was converted to a Lexiscan stress test. Her stress test shows a moderate to large area of ischemia to her inferior wall. She has normal LV function and a normal TID. PAST MEDICAL HISTORY: Significant for hypertension, diabetes, asthma, psoriasis. OUTPATIENT MEDICATIONS: 1. Benazepril/hydrochlorothiazide 10/12.5 mg a day. 2. Calcium with vitamin D tablets. 3. Singulair inhaler as needed. 4. Potassium tablets. 5. Glipizide 10 mg a day. 6. Metformin 1000 mg a day. 7. Prednisone 20 mg for 7 days. 8. Albuterol inhaler. 9. Zofran 4 mg as needed. ALLERGIES: No known drug allergies. PAST SURGICAL HISTORY: 1. Tonsillectomy in the past. 2. Right total hip arthrosis. FAMILY HISTORY: Her mother of a CVA in her 70s. Father of lung cancer in his 70s. SOCIAL HISTORY: She is . She lives most of her time in [place]. She is a previous smoker, rare alcohol intake. PHYSICAL EXAMINATION: Height is 5 feet 4 inches, weight is 156 pounds. Temperature 98, heart rate is 64, blood pressure 114/53, respiratory rate is 16 , sclerae anicteric. Oropharynx is pink without erythema. Carotids are 2+ without bruits. JVD is normal. Thyroid is normal. Cardiac Exam: S1, S2 without any murmurs, rubs or gallops. Lungs: Clear to auscultation. There is no dullness to percussion. Abdomen is soft, nontender, nondistended with normoactive bowel sounds. Extremities show no edema. She has 2+ pulses in her femoral, dorsalis pedis, and popliteal radial arteries. Pulses are normal. The patient is awake and alert and oriented. She moves all 4 extremities equally. DIAGNOSTIC STUDIES/LAB DATA: CBC within normal limits. Chemistries within normal limits. Troponins are 0.0 x3. AST and ALT are normal. BNP is slightly elevated at 434. EKG demonstrates normal sinus rhythm with nonspecific T-wave abnormalities. Again, her stress test shows a moderate to large area of reversible ischemia to her inferior wall. IMPRESSION: This is a 72-year-old female with a history of hypertension and diabetes, who presents to the hospital with what appears to be unstable angina. The patient's stress test shows a moderate to large area of reversible ischemia to her inferior wall. The patient is already on an aspirin. The patient was on heparin, but the heparin has been discontinued. It is my recommendation that the patient undergo cardiac catheterization. The risks and benefits of those procedure were described in great detail and the patient is willing to proceed. The patient will undergo cardiac catheterization tomorrow with Dr. Pandya who I have been in contact with. The patient will follow up with me as an outpatient. This case was discussed with Vivi Loving NP. [id number] #: [id number] YAMILE
[2017-05-11] MEDS ORDERED: NS 0.9% 1000 ML* 1,000 ML IV SCH (23:55)
[2017-05-12 04:19] LABS: Urine Bacteria 1+ (Absent); Urine Bilirubin Negative (Negative); Urine Glucose Negative (Negative); Urine Nitrite Negative (Negative)
[2017-05-12] MEDS: Heparin VIAL(*) 5000 UNITS/ML VIAL (FIVE THOUSAND) SUBCUT SCH ×2 (05:46→13:50)
[2017-05-12] MEDS: Omeprazole CAP* 20 MG PO SCH (05:46)
[2017-05-12] MEDS: Insulin LISPRO* 1 UNITS UNIT SUBCUT SCH ×2 (08:18→13:49)
[2017-05-12] MEDS ORDERED: Midazolam* 1 MG/ML 5 ML VIAL (5 MG) ONE ×2 (08:19→08:41)
[2017-05-12] MEDS ORDERED: fentaNYL* 50 MCG/ML 2 ML VIAL (100 MCG VIAL) ONE ×2 (08:19→08:41)
[2017-05-12] MEDS: Docusate CAP* 100 MG PO SCH (08:19)
[2017-05-12] MEDS ORDERED: Heparin 2 UNITS/ML IVPREMIX* 2,000 ML IV ONE (08:19)
[2017-05-12] MEDS ORDERED: Heparin(*) 1000 UNIT/ML 10 ML VIAL CATH LAB IV ONE (08:19)
[2017-05-12] MEDS ORDERED: VERAPAMIL 2.5 MG/ML 4 ML VIAL ONE (08:19)
[2017-05-12] MEDS ORDERED: Lidocaine 1% INJ* 10 MG/ML 30 ML SDV ONE (08:20)
[2017-05-12] MEDS ORDERED: nitroGLYCERIN DRIP* 0 ML ONE (08:20)
[2017-05-12] MEDS ORDERED: Iohexol 350 (CONTRAST) 200 ML MDV IV ONE (08:20)
[2017-05-12] MEDS ORDERED: Aspirin EC Low Dose* 81 MG TAB.EC PO SCH (09:00)
[2017-05-12] MEDS ORDERED: NS 0.9% 1000 ML* 400 ML IV SCH (09:45)
[2017-05-12 12:25] VITALS: BP 129/67
--- NOTE | 2017-05-13 06:50 | CATH ---
CC: Dr. Robins, [place], [place] * CARDIAC CATHETERIZATION REPORT: DATE OF PROCEDURE: 05/12/17 - ROOM #453 REASON FOR CARDIAC CATHETERIZATION: Asked by Dr. Amaury Garcia, the patient's social work lecturer in hospital, who saw her in consultation to perform diagnostic cardiac cath and possible intervention because of abnormal nuclear stress test raising the question of a vnbusuhl-[id number] area of ischemia to her inferior wall. PROCEDURE: Coronary arteriography, left heart catheterization, left ventriculography. DESCRIPTION OF PROCEDURE: The patient was interviewed and examined on the jones of the hospital, where the risks and benefits were explained. She understood them and wished to proceed. She had already discussed cardiac catheterization with Dr. Garcia as well. She was brought to the cardiovascular laboratory, where a formal time-out was performed. The right radial artery was found to be small in caliber under ultrasound and as such a decision was made to work via the right femoral artery. The patient was prepped and draped in a sterile fashion. The right groin area was anesthetized with 1% lidocaine. Right femoral artery was cannulated and a 5-Rwandan introducer was placed. Coronary arteriography was performed using a 5- Rw[place]an FL 3.5 curve left coronary catheter and a 5-Rwandan 4-curve right coronary catheter. Central aortic pressure was recorded using an angled pigtail catheter advanced to the descending aorta, where central aortic pressure was recorded. The catheter was then passed across the aortic valve into the left ventricle, where left ventricular pressure was recorded. Left ventriculography was performed utilizing a hand injection. Following this, the catheter was removed and injection was made into the right femoral sheath to assess the eligibility to utilize closure device. It was found to be acceptable for this and as such a 5- Rwandan Mynx closure device was deployed with good hemostasis. The total contrast used was 70 cc of Omnipaque dye. The radiation exposure included 8.2 minutes of fluoro time. The air kerma radiation was 476 milligray. The DAP radiation was 3276 microgray per sq. m. RESULTS: HEMODYNAMIC DATA: 1. Central aortic pressure recorded at 124/63 with a mean of 88, left ventricular pressure 128 with a left ventricular end-diastolic pressure of 12. LEFT VENTRICULOGRAPHY: - performed by hand injection reveals symmetrical contraction of the left ventricle. There was suboptimal imaging due to a lower dye injection. Overall ejection fraction could not be accurately calculated, but appeared to be within normal range. CORONARY ARTERIOGRAPHY: A. Left coronary artery: 1. Left main - widely patent. 2. Left anterior descending artery - the left anterior descending artery consisted of 2 parallel branches, which traversed to the anterior region. The more medial one appeared to be a true LAD with a very high first bifurcating diagonal branch. The distal vessels are somewhat corkscrew in appearance and small in caliber, but no focal stenosis was noted throughout the course of the vessels. 3. Circumflex artery - a nondominant vessel supplying a thin first obtuse marginal branch followed by 2 mid obtuse marginal branches. They appeared to be corkscrew in appearance as well, but no focal obstruction seen. B. Right coronary artery - a dominant vessel supplying a large acute marginal branch, which supplied the distal inferior septal area. The posterior descending artery was a thin vessel itself. The rest of the right coronary artery supplied a thin first, followed by moderate-sized second posterior left ventricular branch supplying the low posterolateral wall. There was no significant lesion seen throughout the course of these vessels. OVERALL ASSESSMENT: 1. Probable normal left ventricular systolic function. 2. No evidence of stenotic coronary artery disease. This information was shared with Dr. Sawyer, the social work lecturer, who was taking over for Dr. Garcia in hospital today. Ongoing recommendations on further evaluations will be made either by her or with the hospitalist as well in light of the presence of no significant underlying coronary artery disease. [id number] #: [id number] MTDD
--- NOTE | 2017-05-13 11:26 | DS ---
CC: Dr. Andres Robins, [place], [place] * DISCHARGE SUMMARY: DATE OF ADMISSION: 05/11/17 DATE OF DISCHARGE: 05/12/17 PRIMARY CARE PROVIDER: Dr. Andres Robins in [place], [place], office phone number is [phone]. CONSULTING ASSOCIATE COUNSEL: Dr. Garcia. PIPE COVERER HELPER: Dr. Pandya. DISCHARGING PROVIDER: JAD Holly. SUPERVISING PHYSICIAN: Dr. Sagar White * (DICTATED BY JAD HOLLY) PRIMARY DISCHARGE DIAGNOSES: 1. Chest pain - false positive nuclear stress testing with negative cardiac catheterization. 2. Intermittent left bundle-branch block. 3. Urinary tract infection. SECONDARY DISCHARGE DIAGNOSES: 1. Ndt-nfgeqji-ubxsmwlbs diabetes. 2. Hypertension. DISCHARGE MEDICATIONS: 1. Benazepril and hydrochlorothiazide 10/12.5 one capsule p.o. daily. 2. Bactrim DS 1 tablet p.o. twice daily x5 days. 3. Glipizide 5 mg p.o. twice daily. 4. Metformin 1000 mg p.o. twice daily. MEDICATION CHANGES: Bactrim x5 days. HOSPITAL IMAGIN. Chest x-ray shows no acute process. 2. Nuclear stress test demonstrates a large reversible defect of the inferior wall and septum with a normal ejection fraction estimated at 63%. 3. Telemetry monitoring shows largely a sinus rhythm with intermittent left bundle- branch block. 4. Cardiac catheterization shows no significant coronary artery disease with normal EF on left ventriculogram. HOSPITAL COURSE: This is a very pleasant 72-year-old female who spends half of her year in [place] and half of her year in [place], who presented to the emergency department with complaints of chest pain. The patient stated that the majority of her symptoms started in her back and radiated forward to her chest with an associated crushing sensation that distributed into both of her arms and she became diaphoretic. When she reached the emergency department, her initial labs including a CBC was unremarkable. Chemistries unremarkable and troponin negative at 0.00. BNP mildly elevated at 434, lactic acid within normal limits. Initial chest x-ray showed no acute process and her initial EKG showed a sinus rhythm without acute ischemic changes. The patient subsequently underwent serial troponins, which remains negative and continuous telemetry monitoring, which showed no dysrhythmias. She underwent stress testing which showed a large reversible defect in the inferior wall and the patient subsequently went to cardiac catheterization with anticipation of potential stent placement. Cardiac catheterization revealed normal coronary arteries and no evidence of significant stenosis and ventriculogram was within normal limits. The patient remained free of chest pain throughout her hospital stay. The day of discharge; however, the patient was noted to have an intermittent left bundle-branch block on telemetry. This was discussed with on- call database design analyst Dr. Sawyer, who suggested that seeing her cardiac catheterization was normal and ischemia was not causing her left bundle-branch that either degenerative changes are to be considered or the possibility of Lyme disease causing an intraventricular delay. Upon further interview with the patient, she does recall one instance of flu like symptoms about 6 weeks ago, but her was sick at the same time and she has had no other instances of fever, arthralgias, rashes, or other symptoms consistent with Lyme disease. Lyme serology was added on as a precaution at the time of discharge, but empiric treatment was not initiated. The patient has had intermittent urinary symptoms that she has had for at least the last week and did notice some hematuria during her hospital stay. Urinalysis demonstrated blood, leuk esterase, and bacteria and the patient was empirically treated for urinary tract infection with culture pending at the time of the discharge. DISPOSITION AND FOLLOWUP PLAN: The patient is being discharged to home. Her primary care provider is in [place], but encouraged her to establish with a local primary care for acute care needs and appropriate followup after leaving the hospital, as she does spend January to June in the [place] area. The patient was given the phone number for [facility]. No medication changes were made with the exception of treatment for urinary tract infection with Bactrim. Her chest pain appears to be noncardiac in origin. If her symptoms recur, she requires additional workup for noncardiac chest pain. The patient has a followup appointment with Dr. Pandya for groin site check. JAD HOLLY [id number]/CPS #: [id number] MTDKathy
== END 2017-05-12 15:10 | disposition home or self-care (01) | DRG 287 ==
LOC: ED 18:35 → MEDTELE 05-11 00:10 → OBSVTOIN 05-11 18:42
PROVIDERS: ADMIT Hospitalist; ATTEND Internal Medicine
PROC: 4A12XM4 Monitoring of Cardiac Stress, External Approach (ICD-10-PCS; principal; 2017-05-11)
PROC: 4A023N7 Measurement of Cardiac Sampling and Pressure, Left Heart, Percutaneous Approach (ICD-10-PCS; 2017-05-11)
PROC: B2111ZZ Fluoroscopy of Multiple Coronary Arteries using Low Osmolar Contrast (ICD-10-PCS; 2017-05-11)
PROC: B2151ZZ Fluoroscopy of Left Heart using Low Osmolar Contrast (ICD-10-PCS; 2017-05-11)
DX: R07.89 Other chest pain (principal); N39.0 Urinary tract infection, site not specified; E11.9 Type 2 diabetes mellitus without complications; I10 Essential (primary) hypertension; I44.7 Left bundle-branch block, unspecified; Z79.84 Long term (current) use of oral hypoglycemic drugs; J45.909 Unspecified asthma, uncomplicated; L40.9 Psoriasis, unspecified; Z96.641 Presence of right artificial hip joint; Z87.891 Personal history of nicotine dependence; Z82.3 Family history of stroke; Z98.1 Arthrodesis status
CPT/HCPCS: 36415; 71020; 78452; 80048; 80053; 81003; 81015; 83605; 83880; 84484; 85025; 85610; 85730; 86618; 87086; 93005; 93017; 93458; 99156; 99157; A9270-GY; A9502; C1769; C1887; G0378; J1644; J2001; J2250; J2785; J3010